=== PATIENT | male | born 1945 | race Caucasian/White ===

== ENCOUNTER 2019-03-20 11:54 | Emergency (ER) | payer OTHER, MEDICARE, BC ==
[2019-03-20] MEDS ORDERED: Dextrose 5%-0.9% NaCl 1,000 ML IV SCH (12:30)
--- NOTE | 2019-03-20 12:31 | EDM.PDOC ---
ED HPI GENERAL MEDICAL PROBLEM - General Chief Complaint: Neuro Symptoms/Deficits Stated Complaint: LOSS OF MEMORY ON WORK SITE Time Seen by Provider: 03/20/19 12:23 Source of Information: Reports: Patient History Limitations: Reports: No Limitations - History of Present Illness INITIAL COMMENTS - FREE TEXT/NARRATIVE: 73-year-old male presents to the ED per his . [place] of [place]. Starts work about 0700 hrs. in the morning. He remembers being on a well site this morning that is known to have a lot of H2 as gas. He states that his monitor was likely turned off as it does be put erratically even when there is no real threat. He states he lost his memory for about 2 hours in terms that he can couldn't remember people's names and he could not concentrate. He states he recognized that he was in some form of distress and finally could remember his medical transcription supervisor's phone number and called him. He came and picked him up from the well site that he was at and took him to his cabin where his was which is in the similar area. He stayed there for about a half an hour. His reports that when he came into the cabin he was crying and sobbing uncontrollably and exhibited lab loss of memory. He walked into the cabin however. He denies nausea vomiting or headache. He states now he feels back to normal. Nothing like this is ever happened to him before. He takes lisinopril with hydrochlorothiazide once daily for blood pressure control and pantoprazole for his stomach. No recent falls or closed head injuries. Smoking over 40 years ago. It is therefore highly suspicious that he was exposed to noxious gases on the oil well site that created neurological dysfunction. The well has just been drilled but is not improving reduction at this time. Neuro exam is completely normal. Onset: Today Onset Date: 03/20/19 Onset Time: 08:30 (This is when the got the phone call that the medical transcription supervisor was bring him to the cabin. He therefore became ill somewhere between 8:00 and 8 :30.) Duration: Hour(s):, Resolved Prior to Arrival Location: Reports: Head (Transient confusion and disorientation with inability to remember names and then controlled emotional status with excessive sobbing and crying.) Quality: Reports: Other Severity: Severe Improves with: Reports: Other (Spontaneously improved over the last hour and a half.) Worsens with: Reports: None Context: Reports: Other. Denies: Activity, Exercise, Lifting, Sick Contact, Trauma Associated Symptoms: Reports: Confusion (Possible exposure to noxious fumes on oral Valcyte.), Other (Excessive mood lability with crying and sobbing.). 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: Reports: Other (see below) (None.) - Related Data Allergies Allergy/AdvReac Type Severity Reaction Status Date / Time No Known Allergies Allergy Verified 03/20/19 12:25 Home Meds: Home Meds Famotidine [Pepcid] 20 mg PO BEDTIME 03/20/19 [History] Lisinopril/Hydrochlorothiazide [Lisinopril-Hctz 20-25 mg Tab] 20 - 25 mg PO DAILY 03/20/19 [History] Pantoprazole [ProTONIX] 40 mg PO DAILY 03/20/19 [History] Past Medical History Cardiovascular History: Reports: Hypertension Gastrointestinal History: Reports: GERD Social & Family History - Tobacco Use Smoking Status *Q: Never Smoker - Recreational Drug Use Recreational Drug Use: No - Living Situation & Occupation Living situation: Reports: Occupation: Employed ED ROS GENERAL - Review of Systems Review Of Systems: See Below Constitutional: Reports: Fatigue, Decreased Appetite. Denies: Fever, Chills, Malaise HEENT: Reports: Glasses Respiratory: Denies: Shortness of Breath, Wheezing, Pleuritic Chest Pain, Cough Cardiovascular: Reports: Blood Pressure Problem. Denies: Chest Pain, Claudication, Dyspnea on Exertion, Edema, Lightheadedness, Orthopnea (Well- controlled with medication) Endocrine: Reports: No Symptoms GI/Abdominal: Reports: Other (GERD usually well controlled with Protonix 40 mg daily and occasional use of Zantac.) : Reports: Frequency, Other (Nocturia 2) Musculoskeletal: Reports: Back Pain, Joint Pain (Knees and hips at times can times) Skin: Reports: No Symptoms Neurological: Reports: Confusion (Transient confusion today with loss of memory and excessive sobbing/crying.). Denies: Trouble Speaking, Difficulty Walking, Change in Speech, Gait Disturbance Psychiatric: Reports: Anxiety Hematologic/Lymphatic: Reports: No Symptoms Immunologic: Reports: No Symptoms ED EXAM, NEURO - Physical Exam Exam: See Below Exam Limited By: No Limitations General Appearance: Alert, WD/WN, No Apparent Distress, Other (Blood pressure is mildly elevated at 164/88 O2 sats are 97% on room air with respiratory to 16 pulse 100 and sinus.) Eye Exam: Bilateral Eye: Normal Inspection (No conjunctival injection.) Throat/Mouth: Normal Inspection, Normal Lips, Normal Teeth, Normal Oropharynx Head Exam: Atraumatic, Normocephalic Neck: Normal Inspection, Supple, Non-Tender, Full Range of Motion, Other (No jugular venous pulsations.). No: Carotid Bruit, Lymphadenopathy (L), Lymphadenopathy (R) Respiratory/Chest: No Respiratory Distress, Lungs Clear, Normal Breath Sounds, No Accessory Muscle Use, Chest Non-Tender Cardiovascular: Normal Peripheral Pulses, Regular Rate, Rhythm, No Edema, No Gallop, No Murmur, No Rub GI/Abdominal: Normal Bowel Sounds, Soft, Non-Tender, No Organomegaly, No Abnormal Bruit, No Mass, Pelvis Stable Neurological: Alert, Normal Mood/Affect, Normal Dorsiflexion, CN II-XII Intact, Normal Plantar Flexion, Normal Gait, Normal Reflexes. No: Abnormal Finger to Nose, Babinski, Difficulty Walking Back Exam: Normal Inspection, Full Range of Motion. No: CVA Tenderness (L), CVA Tenderness (R) Extremities: Normal Inspection, Normal Range of Motion, Non-Tender, No Pedal Edema, Normal Capillary Refill Psychiatric: Normal Affect, Normal Mood Skin Exam: Warm, Dry, Intact, Normal Color, No Rash Course - Vital Signs Last Recorded V/S: Last Vital Signs Temp 36.0 C 03/20/19 12:06 Pulse 100 03/20/19 12:06 Resp 16 03/20/19 12:06 BP 164/88 H 03/20/19 12:06 Pulse Ox 97 03/20/19 12:06 - Orders/Labs/Meds Orders: Active Orders 24 hr Category Date Time Status Dextrose 5%-0.9% NaCl [Dextrose 5%-Normal Saline] 1,000 Med 03/20/19 12:30 Active ml IV ASDIRECTED Medication Orders Dextrose/Sodium Chloride (Dextrose 5%-Normal Saline) 1,000 mls @ 200 mls/hr IV ASDIRECTED DARIA Last Admin: 03/20/19 12:56 Dose: 200 mls/hr Labs: Laboratory Tests 03/20/19 03/20/19 03/20/19 Range/Units 12:20 12:20 12:20 WBC 7.66 (4.23-9.07) K/mm3 RBC 4.38 L (4.63-6.08) M/mm3 Hgb 13.4 L (13.7-17.5) gm/L Hct 38.7 L (40.1-51.0) % MCV 88.4 D (79.0-92.2) fl MCH 30.6 (25.7-32.2) pg MCHC 34.6 (32.2-35.5) g/dl RDW Std Deviation 42.0 (35.1-43.9) fL Plt Count 259 (163-337) K/mm3 MPV 10.4 (9.4-12.3) fl Neutrophils % (Manual) 73 H (40-60) % Band Neutrophils % 0 (0-10) % Lymphocytes % (Manual) 23 (20-40) % Atypical Lymphs % 0 % Monocytes % (Manual) 3 (2-10) % Eosinophils % (Manual) 1 (0.8-7.0) % Basophils % (Manual) 0 L (0.2-1.2) Platelet Estimate Adequate RBC Morph Comment Normal ESR 13 (0-15) mm/hr Sodium 136 (136-145) mEq/L Potassium 3.7 (3.5-5.1) mEq/L Chloride 100 (98-107) mEq/L Carbon Dioxide 22 (21-32) mEq/L Anion Gap 17.7 H (5-15) BUN 16 (7-18) mg/dL Creatinine 1.0 (0.7-1.3) mg/dL Est Cr Clr Drug Dosing 70.07 mL/min Estimated GFR (MDRD) > 60 (>60) mL/min BUN/Creatinine Ratio 16.0 (14-18) Glucose 144 H (83-115) mg/dL Calcium 9.1 (8.5-10.1) mg/dL Magnesium 1.9 (1.8-2.4) mg/dl Total Bilirubin 0.5 (0.2-1.0) mg/dL AST 23 (15-37) U/L ALT 25 (16-63) U/L Alkaline Phosphatase 93 (46-116) U/L C-Reactive Protein 0.2 (<1.0) mg/dL Total Protein 7.7 (6.4-8.2) g/dl Albumin 4.2 (3.4-5.0) g/dl Globulin 3.5 gm/dL Albumin/Globulin Ratio 1.2 (1-2) TSH 3rd Generation 1.027 (0.358-3.74) uIU/mL Meds: Medications Generic Name Dose Route Start Last Admin Trade Name Freq PRN Reason Stop Dose Admin Dextrose/Sodium Chloride 1,000 mls @ 200 mls/hr 03/20/19 12:30 03/20/19 12:56 Dextrose 5%-Normal Saline IV 200 mls/hr ASDIRECTED DARIA Administration - Radiology Interpretation Free Text/Narrative:: 73-year-old male presents to the ED with his . 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 He starts work at 0700 hrs. in the morning which would be 6:00 are time. Somewhere between 0730 hrs. and 0830 hrs. he became afflicted with something that made him lose his memory and cause confusion disorientation and marked emotional lability with crying and sobbing. Was on a well site that is known to have high each to assess gases. He states when he checked his monitor after all of the confusion was over the monitors turned off. He states he often does this because it often beeps erratically for no good reason. He has no history or signs or symptoms of closed head injury or fall or injury. He finally could remember his medical transcription supervisor's phone number and he called them and medical transcription supervisor came and picked him up from the well site. Took him to his cabin where his was which was close by. When he got to the cabin the states that he was disoriented confused and sobbing uncontrollably. He couldn't relate tell her what was wrong. He is not a diabetic. He takes medication lisinopril/ HIDA chlorothiazide daily for hypertension and other meds for GERD. He stayed there for at the cabin for over half an hour and then slowly made their way to [place] so exposure to whatever occurred was well over 2 and half hours ago. When he was seen in the ED is completely back to normal and his neuro exam is completely normal as well. He is in normal sinus rhythm and blood pressure is minimally elevated at 164/82. We'll CT his head to rule out an atypical TIA/ stroke. Routine labs ordered. IV will be D5 normal saline at 200 mils per hour. - Re-Assessments/Exams Free Text/Narrative Re-Assessment/Exam: 03/20/19 13:00: CT head is completed. Minimal areas of diminished density are scattered within the periventricular white matter due to small vessel ischemic demyelination change. No obvious infarcts are appreciated. No other abnormal parenchymal densities are appreciated. No evidence of intracranial hemorrhage or midline shift or mass effect noted. Atherosclerotic calcination is seen within the carotid siphon. No acute calvarial abnormality is seen. Question thickening is noted within the ethmoid and maxillary sinus as well as possible air-fluid level within the left maxillary sinus. Mucosal thickening is also seen within the sphenoid sinus. Patient admits that he has been plagued by a cold recently with a cough. Labs are pending. 03/20/19 13:14 Labs reveal a white count of 7.66 with 73% neutrophils and no bands. Hemoglobin is 13.4 with hematocrit of 38.7. Blood count is 259,000. Sodium 136 with a potassium of 3.7. Chloride 100 with a bicarbonate of 22. Anion gap is elevated at 17.7. BUN is 16 with a creatinine 1.0. GFR is greater than 60. Glucose is 144. Calcium is 9.1. Magnesium is 1.9. Liver function is normal. C-reactive protein is less than 0.2. Total protein is 7.7 with albumin fraction of 4.2. TSH is 1.027. Convinced that he was likely exposed to H2 is gas which decreased his oxygen delivery transport system for a period of time causing essentially global hypoxia and confusional/fugue-like state. I'm going to suggest that he of carotid ultrasound performed and that he start a baby aspirin daily because he is in stroke age and is mildly hypertensive. He feels completely back to normal at this time and therefore I will discharge him from the ED. He will have coworkers going check the site for H2S gas levels. Departure - Departure Time of Disposition: 13:30 Disposition: Home, Self-Care 01 Condition: Fair Clinical Impression: Transient global amnesia - Discharge Information *PRESCRIPTION DRUG MONITORING PROGRAM REVIEWED*: Not Applicable *COPY OF PRESCRIPTION DRUG MONITORING REPORT IN PATIENT MOOKIE: Not Applicable Instructions: Transient Global Amnesia Referrals: George Boone PA-C [Primary Care Provider] - Forms: ED Department Discharge Additional Instructions: Evaluation in the emergency room this for noon in regards to development of confusional state with disorientation and emotional lability with crying/ sobbing. This occurred after being on an oil well site that is known to have high H2S gas levels. My impression is that you are exposed to hydrogen sulfide gas which created hypoxia or low oxygen levels as advise onto our red blood cells prevents oxygen delivery. He got better after you removed herself from that environment over a period of time. There was no evidence of stroke on evaluation and CT of the head is within normal limits other than some diffuse sinus infection. This is common after a cold and if that's not bothering you it does not necessarily require treatment at this time. I would suggest starting a baby aspirin every day to prevent stroke as you're in the age group with risk factors of mild hypertension. If it starts to bother your stomach or you get more heartburn indigestion symptoms simply stop it. I would also suggest that you have your primary care practitioner George Boone arrange for carotid ultrasound examination at this time. Off work today but may return to work tomorrow. Suggest having other personnel checkup well site for H2 S gas levels today. - My Orders Last 24 Hours: My Active Orders 03/20/19 12:30 Dextrose 5%-0.9% NaCl [Dextrose 5%-Normal Saline] 1,000 ml IV ASDIRECTED - Assessment/Plan Last 24 Hours: My Active Orders 03/20/19 12:30 Dextrose 5%-0.9% NaCl [Dextrose 5%-Normal Saline] 1,000 ml IV ASDIRECTED
--- NOTE | 2019-03-20 12:55 | CT ---
Head CT Technique: Multiple axial sections through the brain were obtained. Intravenous contrast was not utilized. Comparison: No prior intracranial imaging. Findings: Ventricles along with basal cisterns and sulci over the convexities are mildly prominent. Minimal areas of diminished density are scattered within the periventricular white matter is likely due to small vessel ischemic demyelination change. No other abnormal parenchymal densities are seen. No evidence of intracranial hemorrhage. No midline shift or mass effect is seen. Atherosclerotic calcification is seen within the carotid siphon. No acute calvarial abnormality is seen. Mucosal thickening is noted within the ethmoid and maxillary sinuses as well as possible air-fluid level within the left maxillary sinus. Mucosal thickening is also seen within the sphenoid sinus. Impression: 1. Sinus findings with air-fluid level raising the possibility of acute sinusitis. 2. Mild senescent change. 3. No acute intracranial abnormality is appreciated. Diagnostic code #3
== END 2019-03-20 13:43 | disposition home or self-care (01) ==
LOC: JD.ED 11:54
DX: G45.4 Transient global amnesia (principal); I10 Essential (primary) hypertension; K21.9 Gastro-esophageal reflux disease without esophagitis; Z79.899 Other long term (current) drug therapy
CPT/HCPCS: 36415; 70450; 80053; 83735; 84443; 85007; 85027; 85652; 86140; 96360; 99285; J7042; 99284

== ENCOUNTER 2025-09-15 07:31 | Emergency (ER) | payer MEDICARE, BC ==
[2025-09-15] MEDS ORDERED: Sodium Chloride 0.9% 10 ML Syringe FLUSH PRN (07:55)
[2025-09-15 08:06] LABS: BASOPHILS ABSOLUTE AUTO 0.0 K/mm3 (0.0-0.2); BASOPHILS PERCENT AUTO 0.2 % (0.0-1.0); EOSINOPHILS ABSOLUTE AUTO 0.1 K/mm3 (0.0-0.4); EOSINOPHILS PERCENT AUTO 0.8 % (0.0-6.0); IMMATURE GRAN ABSOLUTE AUTO 0.03 K/mm3 (0.00-0.05); IMMATURE GRAN PERCENT AUTO 0.3 % (0.0-0.4); LYMPHOCYTES ABSOLUTE AUTO 0.9 K/mm3 (1.0-4.8); LYMPHOCYTES PERCENT AUTO 9.4 % (24.0-44.0); MEAN PLATELET VOLUME 10.4 fl (9.4-12.4); MONOCYTES ABSOLUTE AUTO 0.7 K/mm3 (0.0-0.8); MONOCYTES PERCENT AUTO 7.2 % (0.0-8.0); NEUTROPHILS ABSOLUTE AUTO 8.2 K/mm3 (1.8-7.7); NEUTROPHILS PERCENT AUTO 82.1 % (41.0-71.0); NRBC ABSOLUTE 0.00 (0.00-0.02); NRBC PERCENT 0.0 % (0.0-0.2); PLATELET COUNT,PLT 215 K/mm3 (150-400); RED BLOOD CELL COUNT 4.58 M/mm3 (4.52-5.90); WHITE BLOOD CELL COUNT,WBC 10.03 K/mm3 (3.9-11.3)
[2025-09-15] MEDS: Ondansetron 4 MG/2 ML SDV IVPUSH ONE (08:17)
[2025-09-15 08:18] LABS: A/G RATIO 1.1 (1-2); ALANINE AMINOTRANSFERASE,ALT 22.0 U/L (16-63); ASPARTATE AMNIOTRANSFERASE,AST 16.0 U/L (15-37); BILIRUBIN TOTAL 0.8 mg/dL (0.2-1.0); BLOOD UREA NITROGEN,BUN 14.0 mg/dL (7-18); CARBON DIOXIDE,CO2 26.0 mEq/L (21-32); CHLORIDE,CL 96.0 mEq/L (98-107); CREATININE 1.1 mg/dL (0.7-1.3); EST CRCL DRUG DOSING (CG) 57.05 mL/min; ESTIMATED GFR 68.0 mL/min (>60); GLUCOSE RANDOM 111.0 mg/dL (70-99); POTASSIUM,K 4.2 mEq/L (3.5-5.1); PROTEIN TOTAL,TP 7.7 g/dl (6.4-8.2); SODIUM,NA 132.0 mEq/L (136-145)
[2025-09-15 09:49] LABS: APPEARANCE,URINE CLEAR (Clear); GLUCOSE,URINE NEGATIVE (Negative); OCCULT BLOOD,URINE NEGATIVE (Negative)
[2025-09-15 10:12] LABS: EPITHELIAL CELLS,URINE 0-5 /hpf (0-5)
== END 2025-09-15 10:13 | disposition home or self-care (01) ==
LOC: JD.ED 07:31
DX: R10.A1 Flank pain, right side (principal); I10 Essential (primary) hypertension; K21.9 Gastro-esophageal reflux disease without esophagitis; Z79.899 Other long term (current) drug therapy; Z88.8 Allergy status to other drugs, medicaments and biological substances
CPT/HCPCS: 36415; 74176; 80053; 81001; 83690; 84484; 85025; 93005; 96361; 96374; 96375; 99284; J2405; J7030; J1171